=== PATIENT | female | born 1930 | race Caucasian/White ===

== ENCOUNTER 2019-05-10 20:50 | Inpatient (IN) | payer OTHER ==
[~2019-05-10] VITALS: Ht 152.4 cm; Wt 66.8 kg
[~2019-05-10 20:50] MED LIST: ASPI-COR81 M3 PO; ATENOLOL50 MG PO; GLU500 PO; GLYBURIDE2.5 MG PO; HYDRALAZINE HCL25 MG PO; HYDRALAZINE HYD10 M1 PO; MEVACOR20 MG PO; NOR10 PO; OSCD PO; PROPYLTHIOURACI50 MG PO; RANITIDINE150 M1 PO; TRENTAL400 MG PO; ZESTRIL20 MG PO
--- NOTE | 2019-05-10 21:07 | NUR ---
PT PRESENTS TO THE ED WITH DAUGHTER AT BEDSIDE WITH C/C OF CONTINUED DRAINAGE AND PAIN TO LEFT LEG. PT EXPRESSED SHE SHE HAS HAD OPEN SORE TO LOWER LEG X 1MTH AND TWO WEEKS AGO WENT TO URGENT CARE AND HAD A CULTURE TAKEN OF LEG AND PLACED ON ANTIBIOTICS. PT EXPRESSED SHE WAS CALLED AND INFORMED SHE WAS DIAGNOSED WITH PSEUDOMONAS AND STAFF. PT DAUGHTER CONCERED ABOUT DRAINAGE THAT CONTINUES FROM LEFT LEG IS ABOUT TO COMPLETE ANTIBIOTICS. PT IS A/O X 4 SPEECH MOOD AFFECT WNL. PT AMBULATES WITH MILD LIMP DUE TO PAIN. RESPIRATIONS ARE EVEN AND UNLABORDED. NO FEVER NOTED. PT HAS TWO DIABETIC WOUNDS TO LOWER LEFT LEG. INNER LEFT LEG IS APROX 1INCH IN SIZE AND OUTTER LOWER LEG WITH APPROX 3INCH IN SIZE WITH YELLOW/GREENISH DRAINAGE NOTED. PT PLACED IN GOWN. WILL AWAIT FOR MSE
--- NOTE | 2019-05-10 21:30 | NUR ---
LAB AT BEDSIDE
[2019-05-10 21:56] LABS: BASOPHIL % 0.5 % (0-2); PLATELET COUNT 261 x10^3mcL (130-400); RED CELL DISTRIBUTION WIDTH 13.4 % (11.5-14.5)
[2019-05-10 22:04] LABS: CALCIUM 9.3 mg/dL (8.5-10.1); CARBON DIOXIDE 29.4 mmol/L (21-32); CHLORIDE SERUM 101 mmol/L (98-107); CREATININE SERUM 0.9 mg/dL (0.6-1.0); GLUCOSE SERUM 118 mg/dL (74-106); POTASSIUM SERUM 3.8 mmol/L (3.5-5.1); SODIUM SERUM 139 mmol/L (136-145)
[2019-05-10 22:13] LABS: ALBUMIN 3.6 g/dL (3.4-5.0); ALKALINE PHOSPHATASE 63 U/L (46-116); ALT/SGPT 19 U/L (14-59); AST/SGOT 14 U/L (15-37); BILIRUBIN TOTAL 0.3 mg/dL (0.20-1.00); TOTAL PROTEIN, SERUM 7.3 g/dL (6.4-8.2)
[2019-05-10 22:22] LABS: microscopic required? NO
--- NOTE | 2019-05-10 22:23 | NUR ---
PT IV STARTED AND MEDICATIONS GIVEN PER ORDER. CONSENT SIGNED FOR IMMUNIZATIONS. DAUGHTER AT BEDSIDE. NO S/S OF DISTRESS. WILL CONTINUE TO MONITOR.
[2019-05-10 22:50] LABS: ERYTHROCYTE SED RATE 40 mm/hr (0-30)
--- NOTE | 2019-05-10 22:54 | NUR ---
PT AMBULATED TO RESTROOM WITH DAUGHTER. NO S/S OF DISTRESS. STEADY GAIT P5 DENIES PAIN.
[2019-05-10 23:00] LABS: UA SPECIFIC GRAVITY <=1.005 (1.005-1.035); urine erythrocyte NEGATIVE (NEGATIVE)
[2019-05-10] MEDS ORDERED: FUROSEMIDE20 MG PO (23:22)
[2019-05-10] MEDS ORDERED: HYDRALAZINE HCL25 MG PO (23:25)
--- NOTE | 2019-05-10 23:31 | NUR ---
PT SITTING AT BEDSIDE WITH DAUGHTER, NO S/S OF DISTRESS. PT DENIES PAIN EXCEPT FOR AREA OF L LEG WOUND. PT SITTING UPRIGHT. WILL CONTINUE TO MONITOR
--- NOTE | 2019-05-11 00:06 | NUR ---
REPORT GIVEN TO ANGELA TO ASSUME CARE OF PT. NO S/S OF DISTRESS.
--- NOTE | 2019-05-11 00:30 | NUR ---
RECEIVED PT FROM ED VIA WHEELCHAIR, CAME IN DUE TO WOUND ON THE LLE. AAOX4. DENIES HEADACHE/DIZZINESS. ABLE TO FOLLOW COMMANDS. NO SOB NOTED, LUNG SOUNDS CTA. DENIES CHEST PAIN/PRESSURE, DE=51. DENIES ABDOMINAL DISCOMFORT. BOWEL SOUNDS ACTIVE. W/ SUPERFICIAL OPEN WOUND ON THE LEFT LOWER LEG AND CLOSED WOUND ON THE LEFT POSTERIOR LEG. IV SITE ON THE RAC IS PATENT AND INTACT. W/ +2 EDEMA ON BLE. SIDE RAILS UPX2. CALL LIGHT ON REACH. DAUGHTER AT BEDSIDE. PRIMARY NURSE ANGELA AT BEDSIDE FOR CONTINUITY OF CARE
--- NOTE | 2019-05-11 00:31 | NUR ---
PT TAKEN TO MED SURG FLOOR ACCOMPANIED BY DAUGHTER AND EMT. NO S/S OF DISTRESS. RESP E/U. IV SITE PATENT, NO S/S OF INFILTRATION.
[2019-05-11 00:47] VITALS: BP 160/52
[2019-05-11 01:03] VITALS: Ht 152.4 cm; Wt 66.8 kg
--- NOTE | 2019-05-11 01:56 | NUR ---
PT AWAKE. DINKEY BRAKEMAN ASSISTED PT TO BATHROOM. PT DENIES PAIN. BREATHING EVEN AND UNLABORED. SAFETY PRECAUTIONS IN PLACE. WILL CONTINUE TO MONITOR.
--- NOTE | 2019-05-11 03:59 | NUR ---
PT RESTING, BREATHING EVEN AND UNLABORED. NO SIGNS OF DISTRESS NOTED. CALL BUTTON WITHIN REACH. WILL CONTINUE TO MONITOR.
[2019-05-11 05:29] VITALS: BP 158/58
--- NOTE | 2019-05-11 06:07 | NUR ---
PT SLEPT MOST OF THE NIGHT WITH NO SIGNS DISTRESS NOTED. PT DENIES ANY PAIN. NO SIGNS OF DISTRESS. PT AMBULATORY WITH MINIMAL ASSIST. MEDICATED PER EMAR. IV PATENT. CALL BUTTON WITHIN REACH. SAFETY PRECAUTIONS IN PLACE. DAUGHTER AT BEDSIDE. WILL CONTINUE TO MONITOR.
--- NOTE | 2019-05-11 07:29 | NUR ---
PT AWAKE, DENIES PAIN. NO SIGNS OF DISTRESS NOTED. ENDORSED CARE TO DAY SHIFT RN, ALL QUESTIONS ADDRESSED.
--- NOTE | 2019-05-11 07:44 | NUR ---
HANDOFF REPORT RECEIVED. PATIENT AWAKE WITH DAUGHTER AT BEDSIDE. DENIES ANY DISCOMFORT AT THIS TIME. INSTRUCTED TO CALL RN FOR ANY NEED. CALL BERMUDEZ WITHIN REACH. BED LOW AND LOCKED.
[2019-05-11 09:10] VITALS: BP 174/54
--- NOTE | 2019-05-11 09:24 | NUR ---
SEEN BY MD REYNA. FOR DISCHARGE.
[2019-05-11 10:30] VITALS: BP 174/54
--- NOTE | 2019-05-11 12:04 | NUR ---
DISCHARGE TEACHINGS RE- MEDS, DIET, ACTIVITY, MD FOLLOW UP, WHEN TO CALL MD OR GO TO ER OR DIAL 911 ALL DISCUSSED WITH PATIENT AND DAUGHTER. STATED UNDERSTANDING. HEP LOCK REMOVED AND INTACT. ESCORTED OFF THE FLOOR BY VOLUNTEER.
== END 2019-05-11 11:28 | disposition home or self-care (01) | DRG 603 ==
LOC: ED 20:50 → MU 23:06
PROVIDERS: Emergency Medicine; ADMIT Internal Medicine Pulmonary Disease
DX: L03.116 Cellulitis of left lower limb (principal); S80.812S Abrasion, left lower leg, sequela; E11.9 Type 2 diabetes mellitus without complications; I10 Essential (primary) hypertension; E78.5 Hyperlipidemia, unspecified; Z68.29 Body mass index [BMI] 29.0-29.9, adult; W22.8XXS Striking against or struck by other objects, sequela
CPT/HCPCS: 82962; 90715; G0378; J1650; J2270; J3370; J3490; J7030; J7050; Q0092